=== PATIENT | male | born 1970 | race Caucasian/White ===

== ENCOUNTER 2024-01-31 23:08 | Inpatient (IN) | payer MEDICAID, OTHER ==
[~2024-01-31] VITALS: Ht 175.3 cm; Wt 107.0 kg
[2024-02-01 00:16] LABS: BASOPHILS % 0.4 % (0.0-2.0); EOSINOPHILS % 2.3 % (0.0-5.0); HEMATOCRIT. 38.2 % (42.0-52.0); HEMOGLOBIN. 13.1 g/dL (14.0-18.0); LYMPHOCYTES % 34.7 % (20.0-50.0); MEAN CORPUSCULAR HEMOGLOBIN 28.8 pg (28.0-32.0); MEAN CORPUSCULAR HGB CONC 34.4 g/dL (31.0-37.0); MEAN CORPUSCULAR VOLUME 83.6 fL (80.0-94.0); MEAN PLATELET VOLUME 10.1 fl (7.4-10.4); NEUTROPHILS % 53.6 % (40.0-76.0); PLATELET 240 x1000/uL (130-400); RED BLOOD CELL COUNT 4.56 mill/uL (4.7-6.1); RED CELL DISTRIBUTION WIDTH 13.3 % (11.6-14.6); WHITE BLOOD COUNT 7.8 x1000/uL (4.5-11.0)
[2024-02-01 00:21] LABS: CHLORIDE 107 mEq/L (98-107); POTASSIUM 3.6 mEq/L (3.5-5.1); SODIUM 141 mEq/L (136-145)
[2024-02-01 00:22] LABS: CALCIUM 9.4 mg/dL (8.7-10.4); CARBON DIOXIDE 26 mEq/L (21-32)
[2024-02-01 00:27] LABS: CREATININE 1.2 mg/dL (0.6-1.3); GLUCOSE 125 mg/dL (70-105); PROTHROMBIN TIME 10.9 sec (9.6-11.0); UREA NITROGEN BLOOD 20 mg/dL (9-23)
[2024-02-01 00:33] LABS: ETHANOL BLOOD < 10 mg/dL (<10)
[2024-02-01 00:54] LABS: CLARITY URINE CLEAR (CLEAR); COLOR URINE YELLOW (YELLOW); GLUCOSE URINE NEGATIVE (NEGATIVE); KETONES URINE NEGATIVE (NEGATIVE); LEUKOCYTE ESTERASE URINE NEGATIVE (NEGATIVE); NITRITE URINE NEGATIVE (NEGATIVE); OCCULT BLOOD URINE NEGATIVE (NEGATIVE); PH URINE 6.5 (4.5-8.0); PROTEIN URINE NEGATIVE (NEGATIVE); SPECIFIC GRAVITY URINE 1.051 (1.005-1.030); UROBILINOGEN URINE 0.2 E.U./dL (0.2-1.0)
[2024-02-01 01:17] LABS: *AMPHETAMINES SCREEN URINE NEGATIVE (NEGATIVE); *BARBITURATES SCREEN URINE NEGATIVE (NEGATIVE); *BENZODIAZEPINES SCREEN URINE NEGATIVE (NEGATIVE); *COCAINE SCREEN URINE NEGATIVE (NEGATIVE)
[2024-02-01 01:18] LABS: CANNABINOID URINE SCREEN NEGATIVE (NEGATIVE); ECSTASY MDMA SCREEN URINE NEGATIVE (NEGATIVE); METHADONE URINE SCREEN NEGATIVE (NEGATIVE); OPIATES URINE SCREEN NEGATIVE (NEGATIVE); PHENCYCLIDINE URINE SCREEN NEGATIVE (NEGATIVE)
[2024-02-01] MEDS: IBUPROFEN 600MG TABLET PO ONE (01:23)
[2024-02-01 05:30] VITALS: BP 133/66; PULSE 55; RESP 16; TEMP 36.44736; O2SAT 97
[2024-02-01] MEDS ORDERED: IOHEXOL-350 100 ML BOTTLE ONE (06:14)
[2024-02-01] MEDS ORDERED: NALOXONE HCL 0.4MG/ML VIAL IV PRN (07:00)
[2024-02-01] MEDS: HYDROCODONE/ACETAMINOPHEN 5/325MG TABLET PO PRN (12:04)
[2024-02-01 20:00] VITALS: BP 178/88; PULSE 112; RESP 20; TEMP 36.44736; O2SAT 98
[2024-02-01] MEDS: PREDNISONE 20MG TABLET PO SCH (20:35)
[2024-02-01] MEDS: FAMOTIDINE 20MG TABLET PO SCH (20:36)
[2024-02-01] MEDS: ACYCLOVIR 400 MG TABLET PO SCH (21:09)
[2024-02-01] MEDS: CLONIDINE 0.1MG TABLET PO PRN (21:10)
[2024-02-01] MEDS ORDERED: ACYCLOVIR 200MG CAPSULE PO SCH (22:00)
[2024-02-02] VITALS: BP 113/62; PULSE 102; RESP 18; TEMP 36.78072; O2SAT 99
[2024-02-02 04:00] VITALS: BP 115/67; PULSE 114; RESP 16; TEMP 36.44736; O2SAT 98
[2024-02-02 09:00] VITALS: BP 159/88; PULSE 70; RESP 18; TEMP 36.72516; TEMP 36.7516; O2SAT 98
[2024-02-02 12:00] VITALS: BP 119/64; PULSE 66; RESP 18; TEMP 36.55848; O2SAT 98
[2024-02-02] MEDS ORDERED: ACYC200C31 PO (13:24)
[2024-02-02] MEDS ORDERED: PRED10TA MT (13:24)
[2024-02-02 13:39] VITALS: BP 119/64; PULSE 66; TEMP 97.8; O2SAT 98
[2024-02-03] MEDS ORDERED: PREDNISONE 5MG TABLET PO SCH (21:00)
[2024-02-05] MEDS ORDERED: PREDNISONE 10MG TABLET PO SCH (21:00)
== END 2024-02-02 14:45 | disposition home or self-care (01) | DRG 74 ==
LOC: ER 23:21 → 5WST 02-01 02:00 → EDBEDREQTM 02-01 02:30 → EDBEDREQ 02-01 02:30 → 8WST 02-02 08:44
PROVIDERS: ADMIT Internal Medicine; ATTEND Internal Medicine
DX: G51.0 Bell's palsy (principal); E78.5 Hyperlipidemia, unspecified; H92.01 Otalgia, right ear; I10 Essential (primary) hypertension; H57.89 Other specified disorders of eye and adnexa
CPT/HCPCS: 36415; 70496; 70498; 70551; 71045; 80048; 80305; 80320; 81003; 85025; 93005; 99285; J7512; Q9967; G0480